=== PATIENT | female | born 1995 | race Caucasian/White ===

== ENCOUNTER 2019-01-03 18:42 | Emergency (ER) | payer SELFPAY ==
[2019-01-03 20:59] LABS: Rapid Strep Molecular Negative (Negative)
--- NOTE | 2019-01-03 21:02 | ED ---
Throat Pain/Nasal Congestion - HPI Summary HPI Summary: 23-year-old female presents with sore throat for the past couple days. She states that she's been seeing exudate on her tonsils. Has history of strep. No fevers. No sinus congestion. Denies any cough. Admits some difficulty swallowing but is able to do so. No chest pain or shortness breath. No bowel pain nausea vomiting. Has been using Tylenol ibuprofen. - History of Current Complaint Chief Complaint: EDThroatPain Time Seen by Provider: 01/03/19 20:28 - Allergies/Home Medications Allergies/Adverse Reactions: Allergies Allergy/AdvReac Type Severity Reaction Status Date / Time No Known Allergies Allergy Verified 01/03/19 19:02 PMH/Surg Hx/FS Hx/Imm Hx Endocrine/Hematology History: Denies: Hx Anticoagulant Therapy Respiratory History: Denies: Hx Asthma Infectious Disease History: No Infectious Disease History: Denies: Traveled Outside the [place] in Last 30 Days - Family History Known Family History: Positive: Non-Contributory - Social History Alcohol Use: Occasionally Substance Use Type: Reports: Marijuana Smoking Status (MU): Light Every Day Tobacco Smoker Review of Systems Negative: Fever Positive: Sore Throat Negative: Chest Pain Negative: Shortness Of Breath All Other Systems Reviewed And Are Negative: Yes Physical Exam Triage Information Reviewed: Yes Vital Signs On Initial Exam: Initial Vitals Temp Pulse Resp BP Pulse Ox 99.5 F 95 20 121/77 98 01/03/19 19:01 01/03/19 19:01 01/03/19 19:01 01/03/19 19:01 01/03/19 19:01 Vital Signs Reviewed: Yes Appearance: Positive: Well-Appearing Skin: Positive: Warm, Dry Head/Face: Positive: Normal Head/Face Inspection Eyes: Positive: Normal, EOMI, LUIS, Conjunctiva Clear ENT: Positive: Normal ENT inspection, Pharyngeal erythema, TMs normal, Tonsillar swelling, Tonsillar exudate, Uvula midline, Other - soft palate symmetric. Negative: Trismus, Muffled voice Neck: Positive: Supple, Nontender, No Lymphadenopathy Respiratory/Lung Sounds: Positive: Clear to Auscultation, Breath Sounds Present Cardiovascular: Positive: Normal, RRR Abdomen Description: Positive: Nontender, Soft Bowel Sounds: Positive: Present Musculoskeletal: Positive: Normal Neurological: Positive: Normal Psychiatric: Positive: Normal Diagnostics - Vital Signs Vital Signs Temp Pulse Resp BP Pulse Ox 01/03/19 19:01 99.5 F 95 20 121/77 98 - Laboratory Lab Statement: Any lab studies that have been ordered have been reviewed, and results considered in the medical decision making process. EENT Course/Dx - Course Course Of Treatment: 23-year-old female presents with sore throat for the past couple days. She states that she's been seeing exudate on her tonsils. Has history of strep. No fevers. No sinus congestion. Denies any cough. Admits some difficulty swallowing but is able to do so. No chest pain or shortness breath. No bowel pain nausea vomiting. Has been using Tylenol ibuprofen. On exam pharynx erythematous. Uvula midline. Strep is negative. We'll treat supportively with Magic mouthwash. Patient understands agrees with plan. - Differential Diagnoses Differential Diagnoses: Pharyngitis, Sinusitis, Tonsilitis - Diagnoses Provider Diagnoses: Pharyngitis Discharge - Sign-Out/Discharge Documenting (check all that apply): Patient Departure Patient Received Moderate/Deep Sedation with Procedure: No - Discharge Plan Condition: Good Disposition: HOME Prescriptions: Magic Mouth Was-PAVAN/MAAL/LIDO* 5 ml SWISH SPIT QID #100 ml Patient Education Materials: Pharyngitis (ED) Referrals: [facility] [place] [facility] [Outside] Additional Instructions: Magic mouthwash 5ml swish and spit can use 4x a day Take Tylenol or ibuprofen for pain every 6 hours Use saline spray in nose as much as needed for nasal congestion Can gargle salt water Can use cough drops or products such as cloraseptic spray Establish care with primary care physician Return to ED if develop any new or worsening symptoms - Billing Disposition and Condition Condition: GOOD Disposition: Home
[2019-01-03 21:19] VITALS: BP 111/71
== END 2019-01-03 21:17 | disposition home or self-care (01) ==
LOC: ED 18:42
DX: J02.9 Acute pharyngitis, unspecified (principal); F17.200 Nicotine dependence, unspecified, uncomplicated
CPT/HCPCS: 87651; 99212; G0463

== ENCOUNTER 2019-07-22 16:41 | Emergency (ER) | payer OTHER ==
[2019-07-22 17:26] VITALS: BP 120/80
--- NOTE | 2019-07-22 18:24 | UC ---
Ear Complaint HPI - HPI Summary HPI Summary: Patient is a 24yo female presenting with b/l ear congestion, sore throat, and cough x5 days. Also notes sinus congestion and SOB. Denies wheezing. Denies n/v/ d. Denies discharge from ears or hearing loss. Denies fever and chills. Denies myalgias. Notes daughter is also sick at home with viral infection. - History of Current Complaint Chief Complaint: UCGeneralIllness Stated Complaint: BILATERAL EAR COMPLAINT Hx Obtained From: Patient Hx Last Menstrual Period: 07/21/19 Onset/Duration: Gradual Onset, Lasting Days Pain Intensity: 0 - Allergies/Home Medications Allergies/Adverse Reactions: Allergies Allergy/AdvReac Type Severity Reaction Status Date / Time No Known Allergies Allergy Verified 07/22/19 17:18 Home Medications: Home Medications Acetaminophen/Dextromethorphan [Daytime Cold & Cough Liquid] 30 ml PO ONCE 07/22 [History Confirmed 07/22/19] Dm/Acetaminophen/Doxylamine [Nighttime Cold and Flu Liquid] 30 ml PO ONCE [History Confirmed 07/22/19] Ibuprofen TAB* [Advil TAB*] 1,000 mg PO ONCE 07/22/19 [History Confirmed ] Levothyroxine TAB* [Synthroid TAB*] 88 mcg PO DAILY 07/22/19 [History Confirmed 07/22/19] Sertraline HCl [Zoloft] 50 mg PO DAILY 07/22/19 [History Confirmed 07/22/19] PMH/Surg Hx/FS Hx/Imm Hx Endocrine History: Hypothyroidism Other History Of: Negative For: Anticoagulant Therapy - Surgical History Surgical History: Yes Surgery Procedure, Year, and Place: R foot 2003 - Family History Known Family History: Positive: Non-Contributory - Social History Lives: With Family Alcohol Use: None Substance Use Type: None Smoking Status (MU): Former Smoker When Did the Patient Quit Smoking/Using Tobacco: May 2019 Review of Systems All Other Systems Reviewed And Are Negative: Yes Constitutional: Positive: Negative ENT: Positive: Sore Throat, Ear Ache - b/l, Sinus Congestion. Negative: Nasal Discharge, Sinus Pain/Tenderness Respiratory: Positive: Cough - intermittent productive Cardiovascular: Positive: Negative Gastrointestinal: Positive: Negative Musculoskeletal: Positive: Negative Neurological: Positive: Negative Physical Exam Triage Information Reviewed: Yes Appearance: Well-Appearing, No Pain Distress, Well-Nourished Vital Signs: Initial Vital Signs Temp 99 F 07/22/19 17:20 Pulse 77 07/22/19 17:20 Resp 16 07/22/19 17:20 BP 120/80 07/22/19 17:20 Pulse Ox 100 07/22/19 17:20 Lab Results 07/22/19 Range/Units 18:36 Group A Strep Rapid Negative (Negative) Vital Signs Reviewed: Yes Eyes: Positive: Conjunctiva Clear ENT: Positive: Hearing grossly normal, Pharyngeal erythema, Nasal congestion, TMs normal, Tonsillar swelling, Uvula midline. Negative: Nasal drainage, Tonsillar exudate, Trismus, Muffled voice, Hoarse voice, Sinus tenderness Neck exam: Normal Neck: Positive: Supple, Nontender, No Lymphadenopathy Respiratory Exam: Normal Respiratory: Positive: Lungs clear, Normal breath sounds, No respiratory distress Cardiovascular Exam: Normal Cardiovascular: Positive: RRR Neurological: Positive: Alert Psychological: Positive: Age Appropriate Behavior Ear Complaint Course/Dx - Course Course Of Treatment: Discussed viral illness with patient. Instructed to continue with symptomatic treatment including use of inhaler for SOB. Instructed to follow up with PCP if symptoms persist. Patient voiced understanding and agreed with treatment plan. - Differential Dx/Diagnosis Provider Diagnosis: Upper respiratory infection, Acute bronchitis Discharge ED - Sign-Out/Discharge Documenting (check all that apply): Patient Departure All imaging exams completed and their final reports reviewed: No Studies - Discharge Plan Condition: Stable Disposition: HOME Prescriptions: Albuterol HFA INHALER* [Ventolin HFA Inhaler*] 1 - 2 puff INH Q8H PRN #1 mdi PRN Reason: Shortness Of Breath Fluticasone NASAL SPRAY 50MCG* [Flonase NASAL SPRAY 50MCG*] 2 spray BOTH NARES DAILY PRN #1 btl PRN Reason: Congestion Guaifenesin/Pseudoephedrne HCl [Mucinex D ER 1,200-120 mg Tab] 1 each PO BID PRN #14 tab.er.12h PRN Reason: Congestion Patient Education Materials: Upper Respiratory Infection (ED), Acute Bronchitis (ED) Referrals: Pati Grewal MD [Primary Care Provider] - If Needed Additional Instructions: As discussed, your symptoms are most likely caused by a virus. There are no signs of an ear infection today. You may take mucinex and flonase as prescribed to help reduce your mucus production. These are also found over the counter. You may use the inhaler as directed for your shortness of breath. Continue to use your humidifer at night to help alleviate symptoms. Get plenty of rest and fluids. Follow up with your primary care doctor if your symptoms worsen or do not resolve within 7 days. - Billing Disposition and Condition Condition: STABLE Disposition: Home
== END 2019-07-22 19:21 | disposition home or self-care (01) ==
LOC: UCCORT 16:41
DX: J06.9 Acute upper respiratory infection, unspecified (principal); J20.9 Acute bronchitis, unspecified; H92.03 Otalgia, bilateral; E03.9 Hypothyroidism, unspecified; Z79.890 Hormone replacement therapy; Z87.891 Personal history of nicotine dependence
CPT/HCPCS: 87651; 99212; G0463